=== PATIENT | female | born 1980 | race Caucasian/White ===

== ENCOUNTER 2019-03-07 01:36 | Emergency (ER) | payer OTHER ==
[~2019-03-07] VITALS: Ht 170.2 cm; Wt 79.4 kg
[2019-03-07 01:38] VITALS: BP 130/70
[2019-03-07] MEDS ORDERED: ALPRAZOLAM2 MG PO (02:54)
[2019-03-07] MEDS ORDERED: NAPROSYN500 MG PO (05:09)
== END 2019-03-07 05:16 | disposition home or self-care (01) ==
LOC: ER 01:36
DX: S83.8X1A Sprain of other specified parts of right knee, initial encounter (principal); S20.212A Contusion of left front wall of thorax, initial encounter; S70.12XA Contusion of left thigh, initial encounter; Y04.0XXA Assault by unarmed brawl or fight, initial encounter; Y92.149 Unspecified place in prison as the place of occurrence of the external cause; Y93.89 Activity, other specified; Y99.8 Other external cause status